=== PATIENT | female | born 1960 | race Caucasian/White ===

== ENCOUNTER → 2017-03-14 | Outpatient (CLI) | payer BC ==
[~2017-03-14] MED LIST: ATIVAN; ATIVAN PO; CIPRO PO; EFFEXOR50 MG; IBUPROFEN PO; K-DUR20 ME1 PO; KEFLEX500 M1 PO; LEXAPRO; LORTAB 7.5-5001 TAB PO; PROTONIX PO; PYRIDIUM PO; VICODIN 5/500 T1 TAB PO
[2017-03-14 11:51] LABS: AMPHETAMINE NEG (NEG); BARBITURATES NEG (NEG); BENZODIAZEPINES NEG (NEG); COCAINE NEG (NEG); MARIJUANA NEG (NEG); OPIATES NEG (NEG); TRICYCLIC ANTIDEPRESSANTS NEG (NEG); U METHADONE NEG (NEG)
== END | disposition home or self-care (01) ==
LOC: SLAB 11:19
PROVIDERS: Family Medicine
DX: Z51.81 Encounter for therapeutic drug level monitoring (principal); Z79.899 Other long term (current) drug therapy
CPT/HCPCS: 36415; 80307

== ENCOUNTER → 2017-03-22 | Outpatient (CLI) | payer BC ==
--- NOTE | ~2017-03-22 | MR32 ---
[facility] A Service of [facility] RADIOLOGY TEXT RESULTS PATIENT: JAIME ALARCON LOCATION: [facility] : 62 UNIT #: [id number] AGE: [address]: Rabia Adames MD SEX: F ORDER DR: [id number] [address] [address] [id number] O MR#: [id number] Acc #: [id number] NAME: JAIME ALARCON : 1960 SEX: F STUDY DATE/TIME: 03/22/2017 10:50 UNIT: [facility] ROOM: STUDY DESCRIPTION: MR Cervical Wo Contrast Attending Physician: Rabia Adames M.D. Referring Physician: Rabia Adames M.D. Ordering Physician: Rabia Adames M.D. Primary Care Physician: Rabia Adames M.D. MRI CENTER REPORT This report is preliminary unless electronic signature is present. EXAM MRI of the cervical spine without contrast dated 03/22/2017 COMPARISON MRI cervical spine without contrast dated 02/09/2009 HISTORY Increasing neck pain, favoring the right side. It extends into the right upper extremity for less than 6 weeks. FINDINGS Multisequence multiplanar imaging of the cervical spine was obtained without contrast. Vertebral body heights and alignment are preserved. Degenerative disc disease is at multiple levels, relatively worst at C5-6 and C6-7. Pre and paravertebral soft tissues do not demonstrate any significant abnormality. C2-3: Mild degenerative disc signal loss but otherwise unremarkable. C3-4: Concentric disc bulge with tiny central protrusion. No canal stenosis or neural foraminal narrowing. C4-5: Mild disc bulge without canal stenosis or neural foraminal narrowing. C5-6: Concentric disc bulge with superimposed left central to right foraminal broad-based protrusion, most prominent in the right subarticular region. Mild canal stenosis is seen with mild right neural foraminal narrowing. Stable to slightly worse. C6-7: Concentric disc bulge with suspicious small central to right foraminal broad-based protrusion which is most prominent in the right subarticular to foraminal region. Mild inferior right neural foraminal encroachment is noted with borderline size to mild canal stenosis. Stable STS. [facility] A Service of [facility] RADIOLOGY TEXT RESULTS PATIENT: JAIME ALARCON LOCATION: [facility] : 62 UNIT #: [id number] AGE: [address]: Rabia Adames MD SEX: F ORDER DR: given the differences in slice selection. C7-T1: Mild disc bulge with small central protrusion. No canal stenosis or neural foraminal narrowing. IMPRESSION 1. Degenerative changes are noted at multiple levels, relatively worse at C5-6 and C6-7. 2. Findings are predominantly stable with minimal worsening, if any, at C5-6 with right neural foraminal narrowing. 3. Cord is unremarkable. Dictated by... Neeraj Malone M.D. THIS IS AN ELECTRONICALLY VERIFIED REPORT Neeraj Malone M.D. at 03/26/2017 4:12 PM CPR/sarita TD: 03/23/2017 11:04 JOB #: [id number] MRI CENTER REPORT Page 1 of 1
== END | disposition home or self-care (01) ==
LOC: SMRI 10:34
DX: M50.10 Cervical disc disorder with radiculopathy, unspecified cervical region (principal); M47.22 Other spondylosis with radiculopathy, cervical region; M99.81 Other biomechanical lesions of cervical region
CPT/HCPCS: 72141

== ENCOUNTER → 2017-03-30 | Outpatient (CLI) | payer BC ==
--- NOTE | ~2017-03-30 | MY29 ---
[facility] A Service of [facility] RADIOLOGY TEXT RESULTS PATIENT: JAIME ALARCON LOCATION: [facility] : 62 UNIT #: [id number] AGE: [address]: Shay Sarabia MD SEX: F ORDER DR: [id number] [facility] [address] [place], [place] [address] [id number] O MR#: [id number] Acc #: [id number] NAME: JAIME ALARCON : 1960 SEX: F STUDY DATE/TIME: 03/30/2017 9:00 UNIT: [facility] ROOM: STUDY DESCRIPTION: MY [facility] SCREENING W/ CAD BILAT Attending Physician: Shay Sarabia M.D. Referring Physician: Shay Sarabia M.D. Ordering Physician: Shay Sarabia M.D. Primary Care Physician: Rabia Adames M.D. MEDICAL IMAGING REPORT This report is preliminary unless electronic signature is present EXAM Digital screening mammogram, 03/30/2017 HISTORY 56-year-old woman no risk elevation. Annual screening. COMPARISON Mammograms date to 09/23/2007 with most recent screening 03/23/2016. Diagnostic right breast followup 03/30/2016. FINDINGS Digital imaging of each breast was completed utilizing screening protocol. Review includes FDA-approved CAD device. Breast parenchyma is predominantly fatty replaced. There is no breast mass. There are no suspicious microcalcifications and no suspicious architectural deformity. Probable lipoma present right breast. IMPRESSION Negative stable mammogram. Annual screening recommended. Patients over the age of 40 are entered into a reminder system with target due date for the next mammogram. A result letter will also be sent to the patient. BIRADS: 1 Negative Dictated by... Madhu Stanton M.D. THIS IS AN ELECTRONICALLY VERIFIED REPORT Madhu Stanton M.D. at 03/30/2017 1:44 PM Abbey [facility] A Service of [facility] RADIOLOGY TEXT RESULTS PATIENT: JAIME ALARCON LOCATION: [facility] : 62 UNIT #: [id number] AGE: [address]: Shay Sarabia MD SEX: F ORDER DR: TD: 03/30/2017 13:10 JOB #: [id number] MEDICAL IMAGING REPORT Page 1 of 1 COPY
== END | disposition home or self-care (01) ==
LOC: CWCC 03-29 11:15
DX: Z12.31 Encounter for screening mammogram for malignant neoplasm of breast (principal)
CPT/HCPCS: G0202